=== PATIENT | male | born 1995 | race Two or more races ===

== ENCOUNTER 2024-10-21 09:05 | Emergency (ER) | payer MEDICAID ==
[~2024-10-21] VITALS: Ht 165.1 cm; Wt 85.7 kg
[2024-10-21] MEDS ORDERED: LAMICTAL25 MG PO (09:16)
[2024-10-21 09:45] VITALS: BP 123/77
== END 2024-10-21 09:46 | disposition home or self-care (01) ==
LOC: ED 09:05
DX: R10.33 Periumbilical pain (principal); R10.13 Epigastric pain; Z79.899 Other long term (current) drug therapy
CPT/HCPCS: 99283

== ENCOUNTER 2024-12-11 17:49 | Emergency (ER) | payer OTHER ==
[~2024-12-11] VITALS: Ht 165.1 cm; Wt 84.4 kg
[~2024-12-11 17:49] MED LIST: LAMICTAL25 MG PO
[2024-12-11 21:39] VITALS: BP 137/90
== END 2024-12-11 21:35 | disposition home or self-care (01) ==
LOC: ED 17:49
DX: S63.91XA Sprain of unspecified part of right wrist and hand, initial encounter (principal); Z87.81 Personal history of (healed) traumatic fracture; V00.138A Other skateboard accident, initial encounter
CPT/HCPCS: 73130; 99283

== ENCOUNTER 2025-02-04 23:04 | Emergency (ER) | payer OTHER ==
[~2025-02-04] VITALS: Ht 172.7 cm; Wt 80.5 kg
[2025-02-05] MEDS ORDERED: TRAMADOL HCL 50 MG HOME.PACK PO ONE (00:15)
[2025-02-05] MEDS ORDERED: clindamycin HCL 300 MG HOME.PACK PO ONE (00:15)
[2025-02-05] MEDS ORDERED: CLEOCIN HCL300 MG PO (00:17)
[2025-02-05] MEDS ORDERED: TRAMADOL HCL50 MG PO (00:17)
[2025-02-05 00:35] VITALS: BP 118/64
== END 2025-02-05 00:36 | disposition home or self-care (01) ==
LOC: ED 23:04
DX: K04.7 Periapical abscess without sinus (principal); Z79.899 Other long term (current) drug therapy
CPT/HCPCS: 99282; A9270

== ENCOUNTER 2025-03-03 06:27 | Emergency (ER) | payer OTHER ==
[~2025-03-03] VITALS: Ht 172.7 cm; Wt 80.0 kg
[~2025-03-03 06:27] MED LIST changes: +CLEOCIN HCL300 MG PO; +TRAMADOL HCL50 MG PO
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
[2025-03-03] MEDS ORDERED: ADDERALL 20 MG20 MG PO (06:39)
[2025-03-03] MEDS ORDERED: IBUPROFEN 800 MG TAB PO ONE (06:45)
[2025-03-03] MEDS ORDERED: IBU800 MG PO (06:57)
[2025-03-03] MEDS ORDERED: CLEOCIN HCL300 MG PO (06:57)
[2025-03-03 07:10] VITALS: BP 142/82
== END 2025-03-03 07:09 | disposition home or self-care (01) ==
LOC: ED 06:27
DX: S83.92XA Sprain of unspecified site of left knee, initial encounter (principal); Y93.51 Activity, roller skating (inline) and skateboarding; K04.7 Periapical abscess without sinus; Z79.899 Other long term (current) drug therapy; W09.8XXA Fall on or from other playground equipment, initial encounter
CPT/HCPCS: 73560; 99283; A9270

== ENCOUNTER 2025-04-03 09:27 | Emergency (ER) | payer OTHER ==
[~2025-04-03] VITALS: Ht 172.7 cm; Wt 72.1 kg
[~2025-04-03 09:27] MED LIST changes: +ADDERALL 20 MG20 MG PO; +IBU800 MG PO
[2025-04-03] MEDS ORDERED: HYDROmorphone HCL 1 MG/ML SYR IV PRN (09:45)
[2025-04-03] MEDS ORDERED: SODIUM CHLORIDE 0.9% 1,000 ML IV ONE (09:45)
[2025-04-03 09:50] LABS: BASOPHILS 0.7 % (0.2-1.2); EOSINOPHILS 1.4 % (0.8-7.0); LYMPHOCYTES 28.2 % (21.8-53.1); MCH 31.5 PG (25.7-32.2); MCHC 34.5 g/dL (32.3-36.5); MCV 91.1 fL (79.0-92.2); MONOCYTES 10.5 % (5.3-12.2); NEUTROPHILS 58.9 % (34.0-67.9); RBC 4.61 M/uL (4.63-6.08)
[2025-04-03 10:05] LABS: ALT (SGPT) 21.0 U/L (14-59); AST (SGOT) 15.0 U/L (15-37); GLOMERULAR FILTRATION RATE,EST 103.0 mL/min (>60); PROTEIN, TOTAL 8.1 g/dL (6.4-8.2); UREA NITROGEN 19.0 mg/dL (7-18)
[2025-04-03] MEDS ORDERED: HYDROmorphone HCL 1 MG/ML SYR IV ONE ×2 (10:15→11:00)
[2025-04-03] MEDS ORDERED: KETOROLAC TROMETHAMINE 15 MG/ML VIAL IV ONE (11:00)
[2025-04-03] MEDS ORDERED: HYDROCODONE/APAP 10/325 1 TAB PO ONE (13:30)
[2025-04-03 13:45] LABS: BLOOD/HGB, URINE LARGE (Negative); KETONE, URINE TRACE (Negative); LEUK ESTERASE, URINE NEGATIVE (negative); NITRITE, URINE NEGATIVE (negative)
[2025-04-03 13:55] LABS: BACTERIA, URINE NONE SEEN /hpf (negative); CASTS, URINE NONE SEEN \\lpf; CRYSTALS, URINE NONE SEEN (0-1+); EPITHELIAL CELLS, URINE SQUAMOUS 1+ /lpf (0-1+); REFLEX CULTURE, URINE No (No)
[2025-04-03] MEDS ORDERED: FLOMAX0.4 MG PO (14:19)
[2025-04-03] MEDS ORDERED: HYDROCODON-ACE1 EAC8 PO (14:19)
[2025-04-03] MEDS ORDERED: IBU600 MG PO (14:19)
[2025-04-03] MEDS ORDERED: ONDANSETRON HCL4 MG PO (14:19)
[2025-04-03 14:28] VITALS: BP 112/69
== END 2025-04-03 14:27 | disposition home or self-care (01) ==
LOC: ED 09:27
PROVIDERS: Emergency Medicine
DX: N13.2 Hydronephrosis with renal and ureteral calculous obstruction (principal)
CPT/HCPCS: 36415; 74177; 80053; 81001; 83690; 85025; 96361; 96374; 96375; 96376; 99284-25; A9270; J1171; J1885; J2405; J7030; Q9967

== ENCOUNTER 2025-04-03 23:18 | Emergency (ER) | payer OTHER ==
[~2025-04-03] VITALS: Ht 172.7 cm; Wt 72.1 kg
[~2025-04-03 23:18] MED LIST changes: +FLOMAX0.4 MG PO; +HYDROCODON-ACE1 EAC8 PO; +IBU600 MG PO; +ONDANSETRON HCL4 MG PO
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
[2025-04-03] MEDS ORDERED: KETOROLAC TROMETHAMINE 30 MG/ML VIAL IV ONE (23:30)
[2025-04-03] MEDS ORDERED: HYDROmorphone HCL 1 MG/ML SYR IV PRN (23:30)
[2025-04-04] MEDS ORDERED: HYDROCODONE BIT/ACETAMINOPHEN 5/325 MG 1 TAB HOME.PACK PO PRN (00:30)
[2025-04-04 01:09] VITALS: BP 122/71
== END 2025-04-04 01:09 | disposition home or self-care (01) ==
LOC: ED 23:18
DX: N23 Unspecified renal colic (principal); Z79.899 Other long term (current) drug therapy
CPT/HCPCS: 96374; 96375; 99283-25; A9270; J1171; J1885; J2405

== ENCOUNTER 2025-06-08 21:48 | Emergency (ER) | payer OTHER ==
[~2025-06-08] VITALS: Ht 172.7 cm; Wt 73.1 kg
--- OUTSIDE RECORDS SUMMARY | 2025-06-08 21:55 | XMS ---
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 Denise VISIT COUNT (12 MO.) 7 [facility] TOTAL 7 NOTE: Visits indicate total known visits. ED/UCC VISIT TRACKING (12 MO.) 06/08/2025 21:49 [facility] TYPE: Emergency COMPLAINT: - MENTAL HEALTH 04/03/2025 23:18 [facility] TYPE: Emergency COMPLAINT: - FLANK PAIN DIAGNOSES: - Hydronephrosis with renal and ureteral calculous obstruction - Other fpc (current) drug therapy - Personal history of urinary calculi - Unspecified abdominal pain - Unspecified renal colic 04/03/2025 09:27 [facility] TYPE: Emergency COMPLAINT: - ABDOMINAL PAIN DIAGNOSES: - Hydronephrosis with renal and ureteral calculous obstruction - Left lower quadrant pain 03/03/2025 06:28 [facility] TYPE: Emergency COMPLAINT: - LT KNEE INJURY DIAGNOSES: - Activity, roller skating (inline) and skateboarding - Fall on or from other playground equipment, initial encounter - Other agent spa desk (current) drug therapy - Pain in left knee - Periapical abscess without sinus - Sprain of unspecified site of left knee, initial encounter 02/04/2025 23:04 [facility] TYPE: Emergency COMPLAINT: - POSS TOOTH INFECTION DIAGNOSES: - Other agent spa desk (current) drug therapy - Other specified disorders [...] PAIN DIAGNOSES: - Epigastric pain - Other agent spa desk (current) drug therapy - Periumbilical pain - Unspecified abdominal pain INPATIENT VISIT TRACKING (12 MO.) No inpatient visits to display in this time frame [email or web address]
[2025-06-08 22:57] VITALS: BP 00/00
== END 2025-06-08 22:48 | disposition home or self-care (01) ==
LOC: ED 21:48
DX: Z00.8 Encounter for other general examination (principal); Z79.899 Other long term (current) drug therapy
CPT/HCPCS: 99284